=== PATIENT | female | born 1935 | race Caucasian/White ===

== ENCOUNTER 2020-05-21 10:50 | Emergency (ER) | payer MEDICARE ==
[~2020-05-21] VITALS: Ht 162.6 cm; Wt 93.0 kg
[2020-05-21] MEDS ORDERED: HYDROcodone/APAP 5/325 TABLET ONE (11:27)
[2020-05-21] MEDS: HYDROcodone/APAP 5/325 TABLET PO ONE (11:30)
[2020-05-21 11:43] LABS: HCT (SEDRATE) 44.3 % (34.6-47.8)
[2020-05-21 11:45] LABS: BASOPHILS % (AUTO) 1 % (0-1); EOSINOPHILS % (AUTO) 2 % (1-7); LYMPHOCYTES % (AUTO) 17 % (22-44); MEAN CORPUSCULAR HEMOGLOBIN 29.3 pg (27.0-34.8); MEAN CORPUSCULAR HGB CONC 33.8 g/dL (32.4-35.8); MEAN PLATELET VOLUME 8.1 fL (7.4-10.4); MONOCYTES % (AUTO) 8 % (2-9); NEUTROPHILS % (AUTO) 73 % (42-75); PLATELET COUNT 274 x10^3/uL (130-400); RED BLOOD COUNT 5.16 x10^6/uL (3.82-5.3); RED CELL DISTRIBUTION WIDTH 14.9 % (9.6-15.2)
--- NOTE | 2020-05-21 11:45 | NUR ---
Pt arrived with complaints of L foot pain and swelling that began in February. L[facility] and said they didn't find or give her anything. Biggest complaint is "I can't do the jitterbug with my ". Pt denies pain at this time, attched to continious BP and O2 monitors, A&O x4, VSS, NADN.
[2020-05-21 11:55] LABS: ALBUMIN 3.5 g/dL (3.4-5.0); ANION GAP 5 mmol/L (5-15); CALCIUM 10.2 mg/dL (8.5-10.1); CHLORIDE 104 mmol/L (98-107)
[2020-05-21 12:06] LABS: ALANINE AMINOTRANSFERASE 27 U/L (12-78); ALKALINE PHOSPHATASE 81 U/L (45-117); BILIRUBIN,TOTAL 0.6 mg/dL (0.2-1.0); CREATININE 0.72 mg/dL (0.55-1.02)
--- NOTE | 2020-05-21 12:08 | NUR ---
pt ambulatory to restroom
[2020-05-21 12:31] VITALS: BP 148/89
== END 2020-05-21 13:52 | disposition home or self-care (01) ==
LOC: ED 11:27
DX: M1A.0721 Idiopathic chronic gout, left ankle and foot, with tophus (tophi) (principal); M13.872 Other specified arthritis, left ankle and foot
CPT/HCPCS: 36415; 80053; 84550; 85025; 85651; 86140; 99284